=== PATIENT | female | born 1985 | race Two or more races ===

== ENCOUNTER → 2017-06-14 | Outpatient (CLI) | payer SELFPAY ==
--- NOTE | 2017-06-14 14:47 | DIREP ---
PROCEDURE:CT CERVICAL SPINE WITHOUT CONTRAST TECHNIQUE:Axial cuts were obtained through the cervical spine. The images were viewed at bone settings. Sagittal and coronal reconstructions are provided. COMPARISON:None. INDICATIONS:NECK PAIN FINDINGS: ALIGNMENT:Straightening of cervical lordosis with minimal reversal with C4-5. This may be positional. VERTEBRAE:Normal. PARASPINAL AREA:Intermediate size lymph nodes in the left posterior cervical chain. OTHER:No additional findings. CERVICAL DISC LEVELS C2-C3:Normal. C3-C4:Normal. C4-C5:Normal. C5-C6:Normal. C6-C7:Normal. C7-T1:Normal. CONCLUSION: 1. The osseous structures and disc spaces are normal. There is straightening of cervical lordosis with minimal reversal at C4-5 which may be positional. 2. Intermediate sized lymph nodes in the left posterior cervical chain. 3. No other abnormalities. Dictated by: Robert Diego M.D. on 06/14/2017 at 02:42 PM
== END | disposition home or self-care (01) ==
LOC: CT 13:22
DX: M54.16 Radiculopathy, lumbar region (principal); M40.40 Postural lordosis, site unspecified
CPT/HCPCS: 72125